=== PATIENT | male | born 1970 | race African-American/Black ===

== ENCOUNTER 2021-07-14 11:04 | Inpatient (IN) | payer MEDICARE, MEDICAID ==
[~2021-07-14] VITALS: Ht 167.6 cm; Wt 94.8 kg
[2021-07-14] MEDS ORDERED: SODIUM CHLORIDE 0.9% 1,000 ML IV ONE (11:30)
[2021-07-14 12:03] LABS: EOSINOPHILS % 1.1 % (0.0-5.0); HEMATOCRIT. 40.7 % (42.0-52.0); HEMOGLOBIN. 12.8 g/dL (14.0-18.0); LYMPHOCYTES % 20.1 % (20.0-50.0); MEAN CORPUSCULAR HEMOGLOBIN 22.8 pg (28.0-32.0); MEAN CORPUSCULAR VOLUME 72.3 fL (80.0-94.0); MEAN PLATELET VOLUME 8.7 fl (7.4-10.4); MONOCYTES % 8.4 % (2.0-8.0); NEUTROPHILS % 69.4 % (40.0-76.0); PLATELET 219 x1000/uL (130-400); RED BLOOD CELL COUNT 5.63 mill/uL (4.7-6.1); RED CELL DISTRIBUTION WIDTH 19.6 % (11.6-14.6)
[2021-07-14 12:06] LABS: CHLORIDE 103 mEq/L (98-107)
[2021-07-14 15:49] LABS: PARTIAL THROMBOPLASTIN TIME 26.2 sec (23.4-31.0); PROTHROMBIN TIME 10.5 sec (9.6-11.0)
[2021-07-14] MEDS ORDERED: NA PHOS,M-B/NA PHOS,DI-BA ENEMA 118ML PR PRN (19:15)
[2021-07-14] MEDS ORDERED: DIPHENHYDRAMINE 50MG/ML VIAL IV PRN (19:15)
[2021-07-14] MEDS ORDERED: ACETAMINOPHEN 325MG TABLET PO PRN (19:15)
[2021-07-14] MEDS ORDERED: ONDANSETRON HCL 4MG/2ML INJ IV PRN (19:15)
[2021-07-14] MEDS ORDERED: MORPHINE SULFATE 2 MG/ML CPJ (NOT FOR IM USE) IV PRN (19:15)
[2021-07-14] MEDS ORDERED: HYDROCODONE/ACETAMINOPHEN 5/325MG TABLET PO PRN (19:15)
[2021-07-14] MEDS ORDERED: DOCUSATE SODIUM 100MG CAPSULE PO PRN (19:15)
[2021-07-14] MEDS ORDERED: MAGNESIUM/ALUMINUM HYDROXIDE/SIMETHICONE 30ML UDC PO PRN (19:15)
[2021-07-14] MEDS ORDERED: IPRATROPIUM/ALBUTEROL 0.5-3(2.5)MG/3ML NEB NEB PRN (19:15)
[2021-07-14] MEDS ORDERED: GUAIFENESIN 200MG/10ML SUGAR FREE UDC PO PRN (19:15)
[2021-07-14] MEDS: CLONIDINE 0.1MG TABLET PO PRN (20:40)
[2021-07-14] MEDS: DEXT 5%/0.45% NACL 1000ML 1,000 ML IV SCH (21:00)
[2021-07-14 21:28] VITALS: BP 148/86
[2021-07-14 21:30] VITALS: BP 148/86
[2021-07-14] MEDS: ENOXAPARIN 30MG/0.3ML SYR SUBCUT SCH (22:46)
[2021-07-14] MEDS: PANTOPRAZOLE SODIUM 40 MG/VIAL IV SCH (22:46)
[2021-07-14 23:43] LABS: CHLORIDE 109 mEq/L (98-107)
[2021-07-15] VITALS: BP 131/65
[2021-07-15 04:00] VITALS: BP 149/77
[2021-07-15] MEDS: DEXT 5%/0.45% NACL 1000ML 1,000 ML IV SCH ×2 (06:17→15:15)
[2021-07-15 06:53] LABS: BASOPHILS % 0.8 % (0.0-2.0); HEMOGLOBIN. 12.6 g/dL (14.0-18.0); LYMPHOCYTES % 19.4 % (20.0-50.0); MEAN CORPUSCULAR HEMOGLOBIN 22.4 pg (28.0-32.0); MEAN CORPUSCULAR VOLUME 71.2 fL (80.0-94.0); MEAN PLATELET VOLUME 8.9 fl (7.4-10.4); MONOCYTES % 9.7 % (2.0-8.0); NEUTROPHILS % 69.1 % (40.0-76.0); PLATELET 229 x1000/uL (130-400); RED BLOOD CELL COUNT 5.62 mill/uL (4.7-6.1); RED CELL DISTRIBUTION WIDTH 19.9 % (11.6-14.6)
[2021-07-15 08:00] VITALS: BP 179/86
[2021-07-15] MEDS: ENOXAPARIN 30MG/0.3ML SYR SUBCUT SCH ×2 (09:00→20:29)
[2021-07-15] MEDS: PANTOPRAZOLE SODIUM 40 MG/VIAL IV SCH ×2 (09:03→20:29)
[2021-07-15] MEDS: CLONIDINE 0.1MG TABLET PO PRN (09:03)
[2021-07-15 12:00] VITALS: BP 146/80
[2021-07-15] MEDS ORDERED: NALOXONE HCL 0.4MG/ML VIAL IV PRN (13:30)
[2021-07-15 16:00] VITALS: BP 167/92
[2021-07-15 20:00] VITALS: BP 155/90
[2021-07-15] MEDS: LORAZEPAM 2MG/ML CPJ IV PRN (20:30)
[2021-07-16] VITALS (7 sets, daily range): BP systolic 134–170; BP diastolic 75–104
[2021-07-16] MEDS: DEXT 5%/0.45% NACL 1000ML 1,000 ML IV SCH ×3 (01:34→20:46)
[2021-07-16] MEDS: LORAZEPAM 2MG/ML CPJ IV PRN ×2 (01:39→20:44)
[2021-07-16 06:45] LABS: BASOPHILS % 0.5 % (0.0-2.0); EOSINOPHILS % 0.5 % (0.0-5.0); HEMATOCRIT. 43.9 % (42.0-52.0); MEAN CORPUSCULAR HEMOGLOBIN 22.8 pg (28.0-32.0); MEAN CORPUSCULAR VOLUME 71.6 fL (80.0-94.0); MONOCYTES % 11.2 % (2.0-8.0); NEUTROPHILS % 71.8 % (40.0-76.0); PLATELET 228 x1000/uL (130-400); RED BLOOD CELL COUNT 6.13 mill/uL (4.7-6.1)
[2021-07-16 06:53] LABS: CHLORIDE 111 mEq/L (98-107)
[2021-07-16 06:54] LABS: INR 1.1; PARTIAL THROMBOPLASTIN TIME 28.2 sec (23.4-31.0); PROTHROMBIN TIME 11.4 sec (9.6-11.0)
[2021-07-16] MEDS: ENOXAPARIN 30MG/0.3ML SYR SUBCUT SCH ×2 (09:00→20:43)
[2021-07-16] MEDS: PANTOPRAZOLE SODIUM 40 MG/VIAL IV SCH ×2 (09:30→20:43)
[2021-07-16] MEDS ORDERED: MIDAZOLAM HCL 5 MG/5 ML VIAL ONE (13:43)
[2021-07-16] MEDS ORDERED: FENTANYL CITRATE/PF 50MCG/ML 2ML VIAL ONE (13:43)
[2021-07-16] MEDS ORDERED: MIDAZOLAM HCL 5 MG/5 ML VIAL IV PRN (13:54)
[2021-07-16] MEDS ORDERED: FENTANYL CITRATE/PF 50MCG/ML 2ML VIAL IV PRN (13:55)
[2021-07-16] MEDS ORDERED: DIAZEPAM 5 MG/ML 2ML CPJ IV PRN (13:58)
[2021-07-16] MEDS ORDERED: DIAZEPAM 5 MG/ML 2ML CPJ ONE ×2 (14:03→14:14)
[2021-07-16] MEDS: CLONIDINE 0.1MG TABLET PO PRN (20:44)
[2021-07-17] VITALS: BP_SYST 156; BP_SYST 165; BP_DIAS 92; BP_DIAS 94
[2021-07-17 04:00] VITALS: BP 155/95
[2021-07-17] MEDS: CLONIDINE 0.1MG TABLET PO PRN ×2 (05:01→11:28)
[2021-07-17] MEDS: DEXT 5%/0.45% NACL 1000ML 1,000 ML IV SCH (06:20)
[2021-07-17 08:00] VITALS: BP 148/89
[2021-07-17] MEDS: ENOXAPARIN 30MG/0.3ML SYR SUBCUT SCH (08:38)
[2021-07-17] MEDS: PANTOPRAZOLE SODIUM 40 MG/VIAL IV SCH (08:39)
[2021-07-17 09:59] VITALS: BP 143/89
[2021-07-17 11:51] VITALS: BP 148/89
== END 2021-07-17 11:56 | DRG 395 ==
LOC: ER 11:04 → 6EST 14:27 → ENRESERV 20:01
PROVIDERS: ADMIT Internal Medicine; ATTEND Internal Medicine
PROC: 0DB78ZX Excision of Stomach, Pylorus, Via Natural or Artificial Opening Endoscopic, Diagnostic (ICD-10-PCS; principal; 2021-07-16)
DX: T18.108A Unspecified foreign body in esophagus causing other injury, initial encounter (principal); R13.10 Dysphagia, unspecified; I10 Essential (primary) hypertension; Z20.822 Contact with and (suspected) exposure to COVID-19; K29.70 Gastritis, unspecified, without bleeding; E86.0 Dehydration; X58.XXXA Exposure to other specified factors, initial encounter; Y93.89 Activity, other specified; Y92.89 Other specified places as the place of occurrence of the external cause; Y99.8 Other external cause status
CPT/HCPCS: 36415; 70490; 71045; 80048; 80053; 84484; 85025; 87426; 88305; 88312; 88313; 93005; 99291; A6261; C9113; J1200; J1650; J2060; J2250; J2270; J3010; J7030

== ENCOUNTER 2022-10-16 17:49 | Inpatient (IN) | payer MEDICARE, MEDICAID ==
[~2022-10-16] VITALS: Ht 175.3 cm; Wt 100.6 kg
[2022-10-16] MEDS ORDERED: METHYLPREDNISOLONE SOD SUCC 125 MG/2 ML VIAL IV STA (19:28)
[2022-10-16] MEDS ORDERED: IPRATROPIUM BROMIDE (0.02%) 0.5MG/2.5ML NEB HHN STA (19:28)
[2022-10-16 20:06] LABS: HEMATOCRIT. 38.4 % (42.0-52.0); HEMOGLOBIN. 12.7 g/dL (14.0-18.0); MEAN CORPUSCULAR VOLUME 87.7 fL (80.0-94.0); MEAN PLATELET VOLUME 8.6 fl (7.4-10.4); PLATELET 182 x1000/uL (130-400); RED BLOOD CELL COUNT 4.38 mill/uL (4.7-6.1); RED CELL DISTRIBUTION WIDTH 14.7 % (11.6-14.6)
[2022-10-16 20:17] LABS: CHLORIDE 103 mEq/L (98-107)
[2022-10-16] MEDS: ALBUTEROL (0.083%) 2.5MG/3ML NEB HHN SCH ×3 (20:27→22:27)
[2022-10-16] MEDS ORDERED: PIPERACILLIN/TAZ 3.375G PREMIX 50 ML IV ONE (20:45)
[2022-10-16] MEDS ORDERED: SODIUM CHLORIDE 0.9% 1,000 ML IV ONE (20:45)
[2022-10-16] MEDS ORDERED: VANCOMYCIN 1G PREMIX 200 ML IV ONE (20:45)
[2022-10-16] MEDS ORDERED: SODIUM CHLORIDE 0.9% 1000ML BAG (SEPSIS BOLUS) IV ONE (21:00)
[2022-10-16 22:02] LABS: PLATELET ESTIMATE NORMAL
[2022-10-16 22:02] LABS: CLARITY URINE CLEAR (CLEAR); COLOR URINE YELLOW (YELLOW); KETONES URINE TRACE (NEGATIVE); LEUKOCYTE ESTERASE URINE NEGATIVE (NEGATIVE); NITRITE URINE NEGATIVE (NEGATIVE); OCCULT BLOOD URINE NEGATIVE (NEGATIVE); PH URINE 5.5 (4.5-8.0); PROTEIN URINE NEGATIVE (NEGATIVE); SPECIFIC GRAVITY URINE 1.014 (1.005-1.030); UROBILINOGEN URINE 0.2 E.U./dL (0.2-1.0)
[2022-10-16] MEDS ORDERED: ONDANSETRON HCL 4MG/2ML INJ IV PRN (23:00)
[2022-10-16] MEDS ORDERED: ENOXAPARIN 40MG/0.4ML SYR SUBCUT SCH (23:00)
[2022-10-16] MEDS ORDERED: ACETAMINOPHEN 325MG TABLET PO PRN (23:00)
[2022-10-16] MEDS ORDERED: IPRATROPIUM/ALBUTEROL 0.5-3(2.5)MG/3ML NEB HHN PRN (23:00)
[2022-10-16] MEDS ORDERED: GUAIFENESIN 200MG/10ML SUGAR FREE UDC PO PRN (23:00)
[2022-10-16] MEDS ORDERED: MAGNESIUM/ALUMINUM HYDROXIDE/SIMETHICONE 30ML UDC PO PRN (23:00)
[2022-10-16] MEDS ORDERED: DOCUSATE SODIUM 100MG CAPSULE PO PRN (23:00)
[2022-10-17 00:35] LABS: *AMPHETAMINES SCREEN URINE NEGATIVE (NEGATIVE); *BARBITURATES SCREEN URINE NEGATIVE (NEGATIVE); *BENZODIAZEPINES SCREEN URINE NEGATIVE (NEGATIVE); *COCAINE SCREEN URINE NEGATIVE (NEGATIVE); CANNABINOID URINE SCREEN NEGATIVE (NEGATIVE); METHADONE URINE SCREEN NEGATIVE (NEGATIVE); OPIATES URINE SCREEN NEGATIVE (NEGATIVE); PHENCYCLIDINE URINE SCREEN NEGATIVE (NEGATIVE)
[2022-10-17] MEDS: CLONIDINE 0.1MG TABLET PO PRN ×2 (04:36→13:50)
[2022-10-17] MEDS ORDERED: PIPERACILLIN/TAZOBACTAM 3.375 G in DEXTROSE 5% WATER 50 ML IV SCH (06:00)
[2022-10-17 08:00] VITALS: BP 173/91
[2022-10-17] MEDS ORDERED: VANCOMYCIN 1G PREMIX 200 ML IV SCH (08:00)
[2022-10-17 09:05] LABS: CHLORIDE 107 mEq/L (98-107)
[2022-10-17 09:07] LABS: HEMATOCRIT. 37.5 % (42.0-52.0); HEMOGLOBIN. 12.2 g/dL (14.0-18.0); MEAN CORPUSCULAR HEMOGLOBIN 28.9 pg (28.0-32.0); MEAN CORPUSCULAR VOLUME 88.6 fL (80.0-94.0); MEAN PLATELET VOLUME 8.4 fl (7.4-10.4); PLATELET 202 x1000/uL (130-400); RED BLOOD CELL COUNT 4.23 mill/uL (4.7-6.1); RED CELL DISTRIBUTION WIDTH 14.9 % (11.6-14.6)
[2022-10-17 09:21] LABS: CREATINE KINASE 388 IU/L (39-308); CREATINE KINASE MB FRACTION 2.7 ng/mL (0.5-3.6); HDL CHOLESTEROL 55 mg/dL (40-59); LDL CHOLESTEROL 126 mg/dL (5-100)
[2022-10-17 10:00] VITALS: BP 173/93
[2022-10-17] MEDS ORDERED: NALOXONE HCL 0.4MG/ML VIAL IV PRN (10:00)
[2022-10-17 10:40] LABS: PLATELET ESTIMATE NORMAL
[2022-10-17] MEDS ORDERED: METF-416 MT (10:49)
[2022-10-17] MEDS ORDERED: DOCU250C69 PO (10:49)
[2022-10-17] MEDS ORDERED: QUET200T30 PO (10:49)
[2022-10-17] MEDS ORDERED: DEXL60CA3 MT (10:49)
[2022-10-17] MEDS ORDERED: GABA-532 PO (10:49)
[2022-10-17] MEDS ORDERED: ALBU18HF2 IH (10:49)
[2022-10-17] MEDS ORDERED: LOSA25TA26 MT (10:49)
[2022-10-17] MEDS ORDERED: DIVA500T3 PO ×2 (10:49)
[2022-10-17] MEDS ORDERED: CALC-38 MT (10:49)
[2022-10-17] MEDS ORDERED: DONE-51 PO (10:49)
[2022-10-17] MEDS ORDERED: TEMA30CA MT (10:49)
[2022-10-17] MEDS ORDERED: BUDE6HFA INH (10:49)
[2022-10-17] MEDS ORDERED: OLAN20TA29 PO (10:49)
[2022-10-17] MEDS ORDERED: LORA-249 PO (10:49)
[2022-10-17] MEDS ORDERED: EZET10TA13 MT (10:49)
[2022-10-17] MEDS ORDERED: GLIP5TAB12 MT (10:49)
[2022-10-17] MEDS ORDERED: BACL-141 MT (10:49)
[2022-10-17] MEDS ORDERED: QUET400T12 MT (10:49)
[2022-10-17] MEDS ORDERED: IBUP-2741 PO (10:49)
[2022-10-17] MEDS: ENOXAPARIN 30MG/0.3ML SYR SUBCUT SCH ×2 (11:41→21:12)
[2022-10-17] MEDS: VANCOMYCIN 1G PREMIX 200 ML IV SCH ×2 (11:42→21:42)
[2022-10-17] MEDS ORDERED: DEXTROSE 50% WATER 50ML SYRINGE IV PRN (11:45)
[2022-10-17 12:00] VITALS: BP 171/93
[2022-10-17] MEDS: BLOOD SUGAR DIAGNOSTIC STRIP TEST SCH ×3 (12:40→20:21)
[2022-10-17] MEDS: INSULIN LISPRO 100 UNITS/ML SUBCUT SCH ×3 (12:54→20:22)
[2022-10-17] MEDS: PIPERACILLIN/TAZOBACTAM 3.375 G in DEXTROSE 5% WATER 50 ML IV SCH ×2 (13:50→21:10)
[2022-10-17 16:00] VITALS: BP 151/87
[2022-10-17] MEDS ORDERED: BACLOFEN 10MG TABLET PO PRN (16:15)
[2022-10-17 17:25] LABS: CREATINE KINASE MB FRACTION 4.8 ng/mL (0.5-3.6)
[2022-10-17] MEDS: OLANZAPINE 10MG TABLET PO SCH (17:37)
[2022-10-17] MEDS: LOSARTAN POTASSIUM 25 MG TABLET PO SCH (17:37)
[2022-10-17] MEDS: DONEPEZIL HCL 5MG TABLET PO SCH (17:37)
[2022-10-17] MEDS: OMEPRAZOLE 20MG CAPSULE EXTENDED RELEASE PO SCH (17:37)
[2022-10-17] MEDS: LORAZEPAM 0.5MG TABLET PO SCH (17:37)
[2022-10-17] MEDS: CALCIUM CARBONATE/VITAMIN D3 500MG TABLET PO SCH (17:37)
[2022-10-17] MEDS: METFORMIN HCL 500MG TABLET PO SCH (17:37)
[2022-10-17 17:58] LABS: HEPATITIS B SURFACE ANTIGEN NEGATIVE
[2022-10-17 18:08] LABS: T4 FREE 0.7 ng/dL (0.76-1.46)
[2022-10-17 20:00] VITALS: BP 138/79
[2022-10-17] MEDS: DIVALPROEX SODIUM 500MG DR TABLET PO SCH (21:10)
[2022-10-17] MEDS: DOXYCYCLINE 100 MG in DEXT 5% WATER 100 ML IV SCH (21:10)
[2022-10-17] MEDS: TEMAZEPAM 15MG CAPSULE PO PRN (21:11)
[2022-10-17] MEDS: QUETIAPINE FUMARATE 200MG TABLET PO SCH (21:11)
[2022-10-17] MEDS: GABAPENTIN 300MG CAPSULE PO SCH (21:11)
[2022-10-17] MEDS ORDERED: ALBUTEROL (0.083%) 2.5MG/3ML NEB HHN PRN (22:00)
[2022-10-17] MEDS ORDERED: IPRATROPIUM BROMIDE (0.02%) 0.5MG/2.5ML NEB HHN PRN (22:00)
[2022-10-18] VITALS: BP 132/68
[2022-10-18 04:00] VITALS: BP 131/52
[2022-10-18] MEDS: DOXYCYCLINE 100 MG in DEXT 5% WATER 100 ML IV SCH ×2 (05:00→16:24)
[2022-10-18] MEDS: PIPERACILLIN/TAZOBACTAM 3.375 G in DEXTROSE 5% WATER 50 ML IV SCH ×3 (05:00→22:42)
[2022-10-18] MEDS: BLOOD SUGAR DIAGNOSTIC STRIP TEST SCH ×4 (06:40→20:56)
[2022-10-18 08:00] VITALS: BP 152/81
[2022-10-18] MEDS: INSULIN LISPRO 100 UNITS/ML SUBCUT SCH ×4 (08:10→20:56)
[2022-10-18] MEDS: OLANZAPINE 10MG TABLET PO SCH (08:15)
[2022-10-18] MEDS: CALCIUM CARBONATE/VITAMIN D3 500MG TABLET PO SCH ×2 (08:15→16:24)
[2022-10-18] MEDS: GLIPIZIDE 5MG TABLET PO SCH (08:15)
[2022-10-18] MEDS: DONEPEZIL HCL 5MG TABLET PO SCH (08:16)
[2022-10-18] MEDS: LOSARTAN POTASSIUM 25 MG TABLET PO SCH (08:16)
[2022-10-18] MEDS: METFORMIN HCL 500MG TABLET PO SCH ×2 (08:16→16:24)
[2022-10-18] MEDS: OMEPRAZOLE 20MG CAPSULE EXTENDED RELEASE PO SCH (08:16)
[2022-10-18] MEDS: EZETIMIBE 10MG TABLET PO SCH (08:16)
[2022-10-18] MEDS: DIVALPROEX SODIUM 500MG DR TABLET PO SCH ×2 (08:17→20:56)
[2022-10-18] MEDS: LORAZEPAM 0.5MG TABLET PO SCH ×2 (08:17→16:24)
[2022-10-18] MEDS: ENOXAPARIN 30MG/0.3ML SYR SUBCUT SCH ×2 (08:18→20:57)
[2022-10-18] MEDS: DOCUSATE SODIUM 250MG CAPSULE PO SCH (08:22)
[2022-10-18] MEDS: VANCOMYCIN 1G PREMIX 200 ML IV SCH ×2 (10:46→21:07)
[2022-10-18 12:00] VITALS: BP 164/89
[2022-10-18] MEDS: GUAIFENESIN 600MG ER TABLET PO SCH ×2 (13:20→20:56)
[2022-10-18] MEDS: PREDNISONE 20MG TABLET PO SCH (13:21)
[2022-10-18] MEDS: CLONIDINE 0.1MG TABLET PO PRN (13:21)
[2022-10-18 15:42] LABS: BASOPHILS % 0.5 % (0.0-2.0); HEMATOCRIT. 39.9 % (42.0-52.0); LYMPHOCYTES % 14.8 % (20.0-50.0); MEAN CORPUSCULAR HEMOGLOBIN 28.9 pg (28.0-32.0); MEAN PLATELET VOLUME 9.3 fl (7.4-10.4); MONOCYTES % 8.9 % (2.0-8.0); NEUTROPHILS % 74.8 % (40.0-76.0); PLATELET 92 x1000/uL (130-400); RED BLOOD CELL COUNT 4.49 mill/uL (4.7-6.1); RED CELL DISTRIBUTION WIDTH 14.9 % (11.6-14.6)
[2022-10-18 15:49] LABS: CHLORIDE 105 mEq/L (98-107)
[2022-10-18 16:00] VITALS: BP 155/85
[2022-10-18 20:00] VITALS: BP 159/107
[2022-10-18] MEDS: GABAPENTIN 300MG CAPSULE PO SCH (20:56)
[2022-10-18] MEDS: TEMAZEPAM 15MG CAPSULE PO PRN (20:56)
[2022-10-18] MEDS: QUETIAPINE FUMARATE 200MG TABLET PO SCH (20:56)
[2022-10-18] MEDS: HYDROCODONE/ACETAMINOPHEN 5/325MG TABLET PO PRN (22:49)
[2022-10-19] VITALS: BP 132/56
[2022-10-19 04:00] VITALS: BP 129/72
[2022-10-19] MEDS: DOXYCYCLINE 100 MG in DEXT 5% WATER 100 ML IV SCH ×2 (05:14→17:04)
[2022-10-19] MEDS: PIPERACILLIN/TAZOBACTAM 3.375 G in DEXTROSE 5% WATER 50 ML IV SCH ×3 (05:14→22:22)
[2022-10-19] MEDS: BLOOD SUGAR DIAGNOSTIC STRIP TEST SCH ×4 (06:59→21:01)
[2022-10-19 07:54] LABS: BASOPHILS % 0.6 % (0.0-2.0); EOSINOPHILS % 0.7 % (0.0-5.0); HEMATOCRIT. 39.8 % (42.0-52.0); HEMOGLOBIN. 13.3 g/dL (14.0-18.0); LYMPHOCYTES % 25.3 % (20.0-50.0); MEAN CORPUSCULAR HEMOGLOBIN 29.4 pg (28.0-32.0); MEAN CORPUSCULAR VOLUME 87.9 fL (80.0-94.0); MEAN PLATELET VOLUME 8.5 fl (7.4-10.4); MONOCYTES % 10.3 % (2.0-8.0); NEUTROPHILS % 63.1 % (40.0-76.0); PLATELET 201 x1000/uL (130-400); RED BLOOD CELL COUNT 4.53 mill/uL (4.7-6.1); RED CELL DISTRIBUTION WIDTH 14.5 % (11.6-14.6)
[2022-10-19 08:00] VITALS: BP 119/70
[2022-10-19] MEDS: INSULIN LISPRO 100 UNITS/ML SUBCUT SCH ×4 (08:10→21:02)
[2022-10-19] MEDS: LORAZEPAM 0.5MG TABLET PO SCH ×2 (08:24→16:27)
[2022-10-19] MEDS: GUAIFENESIN 600MG ER TABLET PO SCH ×2 (08:25→20:59)
[2022-10-19] MEDS: DOCUSATE SODIUM 250MG CAPSULE PO SCH (08:25)
[2022-10-19] MEDS: GLIPIZIDE 5MG TABLET PO SCH (08:25)
[2022-10-19] MEDS: CALCIUM CARBONATE/VITAMIN D3 500MG TABLET PO SCH ×2 (08:25→16:27)
[2022-10-19] MEDS: LOSARTAN POTASSIUM 25 MG TABLET PO SCH (08:25)
[2022-10-19] MEDS: DONEPEZIL HCL 5MG TABLET PO SCH (08:25)
[2022-10-19] MEDS: METFORMIN HCL 500MG TABLET PO SCH ×2 (08:25→17:03)
[2022-10-19] MEDS: DIVALPROEX SODIUM 500MG DR TABLET PO SCH ×2 (08:25→20:59)
[2022-10-19] MEDS: PREDNISONE 20MG TABLET PO SCH (08:25)
[2022-10-19] MEDS: EZETIMIBE 10MG TABLET PO SCH (08:26)
[2022-10-19] MEDS: VANCOMYCIN 1G PREMIX 200 ML IV SCH (08:26)
[2022-10-19 08:27] LABS: CHLORIDE 102 mEq/L (98-107)
[2022-10-19] MEDS: FAMOTIDINE 20MG TABLET PO SCH ×2 (08:29→20:59)
[2022-10-19] MEDS: ENOXAPARIN 30MG/0.3ML SYR SUBCUT SCH ×2 (08:29→21:01)
[2022-10-19] MEDS: OLANZAPINE 10MG TABLET PO SCH (09:53)
[2022-10-19 12:00] VITALS: BP 136/82
[2022-10-19 16:00] VITALS: BP 125/75
[2022-10-19] MEDS ORDERED: GADOTERATE MEGLUMINE 5 MMOL/10 ML VIAL IV ONE (19:14)
[2022-10-19 20:00] VITALS: BP 159/106
[2022-10-19] MEDS: TEMAZEPAM 15MG CAPSULE PO PRN (20:59)
[2022-10-19] MEDS: GABAPENTIN 300MG CAPSULE PO SCH (20:59)
[2022-10-19] MEDS: QUETIAPINE FUMARATE 200MG TABLET PO SCH (20:59)
[2022-10-19] MEDS ORDERED: VANCOMYCIN 1.25GM PMX (XELLIA) 250 ML IV SCH (21:00)
[2022-10-19] MEDS: HYDROCODONE/ACETAMINOPHEN 5/325MG TABLET PO PRN (22:23)
[2022-10-20] VITALS: BP 146/80
[2022-10-20 04:00] VITALS: BP 147/59
[2022-10-20] MEDS: DOXYCYCLINE 100 MG in DEXT 5% WATER 100 ML IV SCH ×2 (04:53→17:11)
[2022-10-20] MEDS: PIPERACILLIN/TAZOBACTAM 3.375 G in DEXTROSE 5% WATER 50 ML IV SCH ×3 (05:00→21:08)
[2022-10-20 07:19] LABS: T4 FREE 0.93 ng/dL (0.76-1.46)
[2022-10-20] MEDS: BLOOD SUGAR DIAGNOSTIC STRIP TEST SCH ×4 (07:40→21:09)
[2022-10-20] MEDS: INSULIN LISPRO 100 UNITS/ML SUBCUT SCH ×4 (08:10→21:00)
[2022-10-20 08:40] VITALS: BP 108/70
[2022-10-20] MEDS: ENOXAPARIN 30MG/0.3ML SYR SUBCUT SCH ×2 (08:43→21:10)
[2022-10-20] MEDS: DONEPEZIL HCL 5MG TABLET PO SCH (08:43)
[2022-10-20] MEDS: LORAZEPAM 0.5MG TABLET PO SCH ×2 (08:43→16:27)
[2022-10-20] MEDS: GLIPIZIDE 5MG TABLET PO SCH (08:43)
[2022-10-20] MEDS: LOSARTAN POTASSIUM 25 MG TABLET PO SCH (08:43)
[2022-10-20] MEDS: OLANZAPINE 10MG TABLET PO SCH (08:43)
[2022-10-20] MEDS: EZETIMIBE 10MG TABLET PO SCH (08:44)
[2022-10-20] MEDS: LEVOTHYROXINE SODIUM 25MCG TABLET PO SCH (08:44)
[2022-10-20] MEDS: FAMOTIDINE 20MG TABLET PO SCH ×2 (08:44→21:09)
[2022-10-20] MEDS: METFORMIN HCL 500MG TABLET PO SCH ×2 (08:44→17:10)
[2022-10-20] MEDS: DOCUSATE SODIUM 250MG CAPSULE PO SCH (08:44)
[2022-10-20] MEDS: GUAIFENESIN 600MG ER TABLET PO SCH ×2 (08:44→21:09)
[2022-10-20] MEDS: CALCIUM CARBONATE/VITAMIN D3 500MG TABLET PO SCH ×2 (08:44→16:27)
[2022-10-20] MEDS: DIVALPROEX SODIUM 500MG DR TABLET PO SCH ×2 (08:45→21:09)
[2022-10-20] MEDS: PREDNISONE 10MG TABLET PO SCH (08:48)
[2022-10-20 09:07] LABS: FOLICLE STIMULATING HORMONE 6.7 mIU/mL (1.5-12.4); LUTEINIZING HORMONE 7.3 mIU/mL (1.7-8.6); PROLACTIN 12.6 ng/mL (4.0-15.2); THYROID PEROXIDASE ANTIBODY 10 IU/mL (0-34)
[2022-10-20 12:00] VITALS: BP 136/72
[2022-10-20 16:49] VITALS: BP 134/72
[2022-10-20 20:00] VITALS: BP 123/85
[2022-10-20] MEDS: TEMAZEPAM 15MG CAPSULE PO PRN (21:09)
[2022-10-20] MEDS: QUETIAPINE FUMARATE 200MG TABLET PO SCH (21:09)
[2022-10-20] MEDS: GABAPENTIN 300MG CAPSULE PO SCH (21:09)
[2022-10-20] MEDS: HYDROCODONE/ACETAMINOPHEN 5/325MG TABLET PO PRN (21:09)
[2022-10-21] VITALS: BP 110/40
[2022-10-21 04:00] VITALS: BP 145/89
[2022-10-21] MEDS: PIPERACILLIN/TAZOBACTAM 3.375 G in DEXTROSE 5% WATER 50 ML IV SCH ×2 (05:13→13:11)
[2022-10-21] MEDS: DOXYCYCLINE 100 MG in DEXT 5% WATER 100 ML IV SCH (05:13)
[2022-10-21] MEDS: INSULIN LISPRO 100 UNITS/ML SUBCUT SCH ×2 (07:57→13:10)
[2022-10-21] MEDS: BLOOD SUGAR DIAGNOSTIC STRIP TEST SCH ×2 (07:57→12:22)
[2022-10-21] MEDS: LEVOTHYROXINE SODIUM 25MCG TABLET PO SCH (09:05)
[2022-10-21] MEDS: FAMOTIDINE 20MG TABLET PO SCH (09:05)
[2022-10-21] MEDS: DOCUSATE SODIUM 250MG CAPSULE PO SCH (09:05)
[2022-10-21] MEDS: DONEPEZIL HCL 5MG TABLET PO SCH (09:06)
[2022-10-21] MEDS: DIVALPROEX SODIUM 500MG DR TABLET PO SCH (09:06)
[2022-10-21] MEDS: METFORMIN HCL 500MG TABLET PO SCH (09:06)
[2022-10-21] MEDS: PREDNISONE 10MG TABLET PO SCH (09:06)
[2022-10-21] MEDS: OLANZAPINE 10MG TABLET PO SCH (09:06)
[2022-10-21] MEDS: LORAZEPAM 0.5MG TABLET PO SCH (09:06)
[2022-10-21] MEDS: CALCIUM CARBONATE/VITAMIN D3 500MG TABLET PO SCH (09:06)
[2022-10-21] MEDS: ENOXAPARIN 30MG/0.3ML SYR SUBCUT SCH (09:07)
[2022-10-21] MEDS: LOSARTAN POTASSIUM 25 MG TABLET PO SCH (09:07)
[2022-10-21] MEDS: GLIPIZIDE 5MG TABLET PO SCH (09:12)
[2022-10-21] MEDS: EZETIMIBE 10MG TABLET PO SCH (09:12)
[2022-10-21] MEDS: GUAIFENESIN 600MG ER TABLET PO SCH (09:12)
[2022-10-21 11:59] VITALS: BP 141/76
[2022-10-22 09:07] LABS: IGF-BP3 3314 ug/L (2251-5808)
== END 2022-10-21 13:50 | DRG 871 ==
LOC: ER 17:49 → MICUSO 22:40 → EDBEDREQ 22:42 → EDBEDREQTM 22:42 → 7WST 10-17 09:56
PROVIDERS: ADMIT Internal Medicine; ATTEND Internal Medicine
DX: A41.9 Sepsis, unspecified organism (principal); J18.9 Pneumonia, unspecified organism; J96.20 Acute and chronic respiratory failure, unspecified whether with hypoxia or hypercapnia; J98.11 Atelectasis; J44.1 Chronic obstructive pulmonary disease with (acute) exacerbation; J44.0 Chronic obstructive pulmonary disease with (acute) lower respiratory infection; E44.1 Mild protein-calorie malnutrition; G93.40 Encephalopathy, unspecified; R65.20 Severe sepsis without septic shock; K76.0 Fatty (change of) liver, not elsewhere classified; I10 Essential (primary) hypertension; G47.00 Insomnia, unspecified; E11.9 Type 2 diabetes mellitus without complications; Z20.822 Contact with and (suspected) exposure to COVID-19; B35.1 Tinea unguium; E03.9 Hypothyroidism, unspecified; E29.1 Testicular hypofunction; E66.9 Obesity, unspecified; R16.0 Hepatomegaly, not elsewhere classified; R47.1 Dysarthria and anarthria; K29.50 Unspecified chronic gastritis without bleeding; Z79.51 Long term (current) use of inhaled steroids; Z99.81 Dependence on supplemental oxygen; Z87.891 Personal history of nicotine dependence; Z90.49 Acquired absence of other specified parts of digestive tract; Z87.820 Personal history of traumatic brain injury; Z68.32 Body mass index [BMI] 32.0-32.9, adult
CPT/HCPCS: 36415; 70553; 71045; 74176; 80048; 80053; 80061; 80202; 80305; 81003; 82550; 82553; 82962; 83001; 83002; 83036; 83520; 83605; 83880; 84145; 84146; 84402; 84403; 84439; 84443; 84481; 84484; 85025; 85379; 86376; 86803; 87340; 87426; 87804; 93005; 93970; 94640; 99291; A9577; J1650; J1815; J2543; J2930; J3370; J3490; J7030; J7060; J7512